=== PATIENT | male | born 1965 | race Caucasian/White ===

== ENCOUNTER 2020-02-09 13:33 | Outpatient (CLI) | payer MEDICAID ==
--- NOTE | 2020-02-09 15:30 | Consultation ---
DATE OF CONSULTATION: 02/09/2020 CHIEF COMPLAINT: Here for rectal bleeding, screening colonoscopy. PAST MEDICAL HISTORY: 1. Hypertension. 2. History of hernia. PAST SURGICAL HISTORY: Bilateral inguinal hernia repair. MEDICATIONS: Enalapril. FAMILY HISTORY: No family history of GI malignancies. SOCIAL HISTORY: The patient denies any alcohol use but smokes cigarettes. Denies any IV drug abuse. ALLERGIES: Naprosyn. REVIEW OF SYSTEMS: Positive for blood in the stool. PHYSICAL EXAMINATION: VITAL SIGNS: Temperature 98.3, blood pressure 117/70, pulse 80, respirations 20. HEENT: Normocephalic and atraumatic. Sclerae anicteric. NECK: Supple. No evidence of obvious lymphadenopathy. CARDIOVASCULAR: Regular rate and rhythm. Plus S1 and S2. LUNGS: Decreased breath sounds bilaterally based on supine exam. ABDOMEN: Soft and nontender. No rebound. No guarding. No peritoneal sign. EXTREMITIES: No cyanosis. No clubbing. ASSESSMENT AND PLAN: The patient is a 54-year-old male referred for screening colonoscopy, also he had rectal bleeding so needs colonoscopy. The patient was given instruction for colonoscopy. Risks and benefits of procedure was explained to him. We will schedule him as soon as the authorization is obtained. Farooq Martines M.D. DR: Pat JOB#: [id number] CC:
== END 2020-02-09 15:33 | disposition home or self-care (01) ==
LOC: PAN 13:33
DX: K62.5 Hemorrhage of anus and rectum (principal); I10 Essential (primary) hypertension; Z79.899 Other long term (current) drug therapy; Z88.8 Allergy status to other drugs, medicaments and biological substances; F17.210 Nicotine dependence, cigarettes, uncomplicated; K92.1 Melena
CPT/HCPCS: G0463